=== PATIENT | male | born 1950 | race Caucasian/White ===

== ENCOUNTER 2017-10-30 14:05 | Emergency (ER) | payer MEDICARE, OTHER ==
[~2017-10-30] VITALS: Ht 182.9 cm; Wt 131.1 kg
[~2017-10-30 14:05] MED LIST: CARV12.52 PO; CHOL500016 PO; CYAN10005 PO; CYCL5TAB PO; FOLI0.8T21 PO; FURO80TA3 PO; HYDR-963 PO; LANT1000 PO; OLME1TAB21 PO; OLME1TAB23 PO; OMEG1CAP2 PO; PIOG30TA41 PO; RENAVITE; SEVE800T9 PO; TRAM50TA PO; [UNRECOGNIZED DRUG - OTHER]
[2017-10-30] MEDS ORDERED: ONDANSETRON PF 4 MG/2 ML VIAL. IV ONE (14:45)
[2017-10-30] MEDS ORDERED: IV NORMAL SALINE 500ML 500 ML IV ONE (14:45)
[2017-10-30 14:57] LABS: BASO % 1 % (0-3); EOS # 0.2 x10^3/uL (0.0-0.7); EOS % 6 % (0-3); HEMATOCRIT 34.3 % (39.0-53.0); HEMOGLOBIN 11.8 g/dL (13.0-17.5); LYMPH # 0.7 x10^3/uL (1.0-4.8); LYMPH % 19 % (24-48); MEAN CORPUSCULAR HEMOGLOBIN 37 pg (25-35); MEAN CORPUSCULAR HGB CONC 34 g/dL (31-37); MEAN CORPUSCULAR VOLUME 107 fL (79-100); MONO # 0.5 x10^3/uL (0.0-1.1); MONO % 12 % (0-9); NEUT # 2.3 x10^3uL (1.8-7.7); NEUT % 62 % (31-73); PLATELET COUNT 102 x10^3/uL (140-400); RED BLOOD COUNT 3.23 x10^6/uL (4.30-5.70); RED CELL DISTRIBUTION WIDTH 13.8 % (11.5-14.5); WHITE BLOOD COUNT 3.8 x10^3/uL (4.0-11.0)
[2017-10-30 15:15] LABS: ALBUMIN 3.3 g/dL (3.4-5.0); ALBUMIN/GLOBULIN RATIO 0.8 (1.0-1.7); CALCIUM 8.9 mg/dL (8.5-10.1); CREATININE 6.4 mg/dL (0.7-1.3); GFR 8.7; MAGNESIUM 1.9 mg/dL (1.8-2.4); TOTAL BILIRUBIN 0.5 mg/dL (0.2-1.0); TOTAL PROTEIN 7.4 g/dL (6.4-8.2)
--- NOTE | 2017-10-30 15:42 | EKG ---
[address] [address] Test Date: 2017-10-30 Test Time: 14:50:39 Pat Name: LIZET OSWALD Department: Room: Gender: M Tobacco Conditioner: SUMAYA : 1950 Requested By: NEETA DOWELL Order Number: [id number] Reading MD: Measurements Intervals [place] Rate: 78 P: 0 WI: 266 QRS: -63 QRSD: 146 T: 129 QT: 442 QTc: 508 Interpretive Statements SINUS RHYTHM ATRIAL PREMATURE COMPLEX(ES) PROLONGED WI INTERVAL ABNORMAL LEFT AXIS DEVIATION NON SPECIFIC INTRAVENTRICULAR BLOCK QRS(T) CONTOUR ABNORMALITY CONSISTENT WITH ANTEROLATERAL INFARCT AGE UNDETERMINED CONSISTENT WITH INFERIOR INFARCT PROBABLY OLD ABNORMAL ECG RI6.01 Unconfirmed report No previous ECG available for comparison
--- NOTE | 2017-10-30 15:43 | RAD ---
Indication: Shortness of air. Time of exam 1538 hours. Correlation is made with prior study from 09/27/2015. Heart is enlarged but stable. There appears be a small amount of pleural fluid on the left. No infiltrates are detected. There is no failure. No pneumothorax is seen. Impression: Cardiomegaly and trace left pleural effusion.
[2017-10-30 16:58] VITALS: BP 111/55
--- NOTE | 2017-10-30 17:18 | PHYS DOC ---
Past History Past Medical History: CAD, CHF, Diabetes, Renal Failure Past Surgical History: Other Alcohol Use: None Drug Use: None Adult General Chief Complaint Chief Complaint: NAUSEA/VOMITING/DIARRHEA HPI HPI Patient is a 67 year old male who presents with vomiting & diarrhea. The patient reports 3 day history of illness, one episode of vomiting today, numerous episodes of diarrhea. Not tolerating oral intake. He denies fevers/ chills, chest pain, shortness of breath, hematemesis, abdominal pain, hematochezia/melena, dysuria/hematuria (though makes a minimal amount of urine) . He states he felt dizzy/lightheaded at home, felt as if he would have syncope. Denies fall. He has ESRD on hemodialysis. Missed dialysis on W (2 days ago), went today but only for 2 hours because of diarrhea. He also reports history of CAD, CHF, diabetes. PCP is Dr. Porter. Review of Systems Review of Systems Constitutional: Denies fever or chills Eyes: Denies change in visual acuity HENT: Denies nasal congestion or sore throat Respiratory: Denies cough or shortness of breath Cardiovascular: Denies chest pain or edema GI: Reports nausea, vomiting, diarrhea. Denies abdominal pain, bloody stools : Denies dysuria or hematuria Musculoskeletal: Denies back pain or joint pain Integument: Denies rash or skin lesions Neurologic: Denies headache, focal weakness or sensory changes All other systems were reviewed and found to be within normal limits, except as documented in this note. Current Medications Current Medications Current Medications Medications (Trade) Dose Ordered Sig/Dm Start Time Stop Time Status Last Admin Dose Admin Ondansetron HCl (Zofran) 4 mg 1X ONCE 10/30/17 14:45 10/30/17 14:46 DC 10/30/17 14:45 4 MG Sodium Chloride 500 ml @ 0 mls/hr 1X ONCE 10/30/17 14:45 10/30/17 14:46 DC 10/30/17 14:45 500 MLS/HR Allergies Allergies Allergies Coded Allergies Type Severity Reaction Last Updated Verified No Known Drug Allergies 12/15/14 No Physical Exam Physical Exam Constitutional: obese, no acute distress, non-toxic appearance. HENT: Normocephalic, atraumatic, bilateral external ears normal, oropharynx moist, nose normal. Eyes: PERRLA, EOMI, conjunctiva normal, no discharge. Neck: supple, no stridor. Cardiovascular: RRR, no murmurs Lungs & Thorax: LCTAB, no wheezing, no respiratory distress. Abdomen: soft, nontender, nondistended. no masses or pulsatile masses, no rebound/guarding. Skin: Warm, dry, no erythema, no rash. Back: No CVA tenderness. Extremities: No tenderness, 2+ edema to bilateral lower extremities Neurologic: Alert and oriented X 3, cranial nerves 2-12 grossly intact, symmetric strength/sensation to upper & lower extremities, no focal deficits noted. Psychologic: Affect normal, judgement normal, mood normal. Current Patient Data Vital Signs Vital Signs Date Time Temp Pulse Resp B/P (MAP) Pulse Ox O2 Delivery O2 Flow Rate FiO2 10/30/17 16:58 77 18 111/55 (73) 100 Nasal Cannula 2.0 10/30/17 14:05 98.6 Lab Results Laboratory Tests Test 10/30/17 14:30 10/30/17 14:47 White Blood Count 3.8 x10^3/uL (4.0-11.0) L Red Blood Count 3.23 x10^6/uL (4.30-5.70) L Hemoglobin 11.8 g/dL (13.0-17.5) L Hematocrit 34.3 % (39.0-53.0) L Mean Corpuscular Volume 107 fL (79-100) H Mean Corpuscular Hemoglobin 37 pg (25-35) H Mean Corpuscular Hemoglobin Concent 34 g/dL (31-37) Red Cell Distribution Width 13.8 % (11.5-14.5) Platelet Count 102 x10^3/uL (140-400) L Neutrophils (%) (Auto) 62 % (31-73) Lymphocytes (%) (Auto) 19 % (24-48) L Monocytes (%) (Auto) 12 % (0-9) H Eosinophils (%) (Auto) 6 % (0-3) H Basophils (%) (Auto) 1 % (0-3) Neutrophils # (Auto) 2.3 x10^3uL (1.8-7.7) Lymphocytes # (Auto) 0.7 x10^3/uL (1.0-4.8) L Monocytes # (Auto) 0.5 x10^3/uL (0.0-1.1) Eosinophils # (Auto) 0.2 x10^3/uL (0.0-0.7) Basophils # (Auto) 0.0 x10^3/uL (0.0-0.2) Sodium Level 142 mmol/L (136-145) Potassium Level 4.0 mmol/L (3.5-5.1) Chloride Level 100 mmol/L (98-107) Carbon Dioxide Level 36 mmol/L (21-32) H Anion Gap 6 (6-14) Blood Urea Nitrogen 29 mg/dL (8-26) H Creatinine 6.4 mg/dL (0.7-1.3) H Estimated GFR (Cockcroft-Gault) 8.7 BUN/Creatinine Ratio 5 (6-20) L Glucose Level 73 mg/dL (70-99) Calcium Level 8.9 mg/dL (8.5-10.1) Magnesium Level 1.9 mg/dL (1.8-2.4) Total Bilirubin 0.5 mg/dL (0.2-1.0) Aspartate Amino Transferase (AST) 11 U/L (15-37) L Alanine Aminotransferase (ALT) 15 U/L (16-63) L Alkaline Phosphatase 36 U/L (46-116) L Troponin I Quantitative < 0.017 ng/mL (0-0.055) Total Protein 7.4 g/dL (6.4-8.2) Albumin 3.3 g/dL (3.4-5.0) L Albumin/Globulin Ratio 0.8 (1.0-1.7) L Lipase 129 U/L (73-393) BQ-Zme-V-Type Natriuretic Peptide > 92757 pg/mL (0-124) H EKG EKG Interpreted by me: Normal sinus rhythm rate 78, T waves inverted in [address] depression, prolonged TX 266 ms, intraventricular block, PACs[] Radiology/Procedures Radiology/Procedures PROCEDURE: CHEST AP ONLY Indication: Shortness of air. Time of exam 1538 hours. Correlation is made with prior study from 09/27/2015. Heart is enlarged but stable. There appears be a small amount of pleural fluid on the left. No infiltrates are detected. There is no failure. No pneumothorax is seen. Impression: Cardiomegaly and trace left pleural effusion. DICTATED AND SIGNED BY: KERA BAIRD MD DATE: 10/30/17 1541[] Course & Med Decision Making Course & Med Decision Making Pertinent Labs and Imaging studies reviewed. (See chart for details) The patient presents with vomiting and diarrhea. Vitals stable here. Afebrile, not tachycardic. He had no focal tenderness on abdominal exam. Gave 500 mL normal saline fluid bolus due to frequent loose stools, Zofran. Labs as above, no significant abnormality. He was noted to have low oxygen saturation on room air into the high 80s. Placed on oxygen 2 L by nasal cannula. Does not typically require home oxygen. He denies any chest pain or shortness of breath at this time. Obtained chest x-ray which shows no acute infiltrate or pulmonary edema. The patient attempted to ambulate within the room to the bedside commode and experienced near syncope, required assistance and had to sit back on the bed. I recommended admission to the hospital for further evaluation and treatment. He agreed with the plan of care. Discussed with Dr. Porter who advises that the patient should be transferred so that he could undergo dialysis. The patient requests to go to [facility]. I discussed with transfer RN & she was discussing with transfer physician. Patient requested to be discharged. He stated that he now felt much better, we were able to wean from O2, he demonstrated that he could ambulate in the hallway with his walker & was not symptomatic. We discussed at length, fluid status is difficult because prone to dehydration with diarrhea but could easily become volume overloaded with CHF/ESRD. Recommend rest, hydration, zofran, follow up with Dr. Porter after [place] which is in 4 days. I did update Dr. Porter as well. The patient is instructed to return for high fever, severe pain, uncontrolled vomiting, blood in emesis or stools, severe chest pain or shortness of breath, any otherwise worsening condition. Discharged home in stable condition. [] Dragon Disclaimer Dragon Disclaimer This electronic medical record was generated, in whole or in part, using a voice recognition dictation system. Departure Departure: Impression: Primary Impression: Vomiting and diarrhea Additional Impressions: End stage renal disease Hypoxia Near syncope Disposition: 01 HOME, SELF-CARE Condition: IMPROVED Referrals: MARTIN PORTER MD (PCP) Patient Instructions: Diarrhea, [id number], Nausea and Vomiting, [id number] Additional Instructions: You were seen in the emergency department today for vomiting and diarrhea. Initially we recommended admission to the hospital because you felt like he might faint and you had low oxygen. You actually felt much better after treatment here and were able to go home. Please rest, drink sips of clear liquids to stay hydrated, use Zofran for nausea. Be aware that diarrhea can make you dehydrated, but excess fluid can be harmful when you have CHF and end- stage renal disease. Please follow-up with Dr. Porter after [facility]. Return to the emergency department for high fever, severe pain, uncontrolled vomiting, blood in vomit or stools, severe chest pain or shortness of breath, any otherwise worsening condition. Scripts Ondansetron (ZOFRAN ODT) 4 Mg Tab.rapdis 1 TAB SL Q8HRS, #10 TAB Prov: NEETA DOWELL MD 10/30/17 Problem Qualifiers NEETA DOWELL MD Oct 30, 2017 17:18
[2017-10-30] MEDS ORDERED: ONDA4TAB10 SL (17:31)
== END 2017-10-30 17:50 | disposition home or self-care (01) ==
LOC: ER 14:05
DX: R11.10 Vomiting, unspecified (principal); R19.7 Diarrhea, unspecified; E11.22 Type 2 diabetes mellitus with diabetic chronic kidney disease; N18.6 End stage renal disease; R09.02 Hypoxemia; R55 Syncope and collapse; I25.10 Atherosclerotic heart disease of native coronary artery without angina pectoris; I50.9 Heart failure, unspecified; Z99.2 Dependence on renal dialysis
CPT/HCPCS: 36415; 71010; 80053; 83690; 83735; 83880; 84484; 85025; 87324; 93005; 96361; 96374; 99285; J2405; J7040

== ENCOUNTER → 2017-11-18 | Outpatient (CLI) | payer MEDICARE, OTHER ==
[2017-10-30 16:58] VITALS: BP 111/55
[~2017-11-18] MED LIST changes: +ONDA4TAB10 SL
== END | disposition home or self-care (01) ==
LOC: SURG 12:44
PROVIDERS: ATTEND Anesthesiology Pain Medicine
DX: M79.1 Myalgia (principal); M19.90 Unspecified osteoarthritis, unspecified site; E11.9 Type 2 diabetes mellitus without complications
CPT/HCPCS: 20553